=== PATIENT | female | born 1960 | race Caucasian/White ===

== ENCOUNTER 2025-05-18 21:35 | Emergency (ER) | payer MEDICAID, OTHER ==
[~2025-05-18] VITALS: Ht 157.5 cm; Wt 85.6 kg
[2025-05-18 21:40] VITALS: BP 187/94; PULSE 97; RESP 18; TEMP 98.2; O2SAT 94
--- NOTE | 2025-05-18 22:00 | ED.PDOC ---
History of Present Illness HPI Comments 64 y/o obese F presents with swelling and bruising to 3rd digit of right hand. Endorsement of noticing symptoms, today. Denial of any recent injuries. Denial of any further acute symptoms. Chief Complaint: Insect Bite Time Seen by MD: 21:50 Reviewed Notes: Nurses Notes, Medications, Allergies Allergies: Coded Allergies: Penicillins (Verified Allergy, Unknown, 05/18/25) Home Meds Active Scripts Diclofenac Sodium (Diclofenac Sodium Ec) 50 Mg Tab, 1 TAB PO BID PRN for 6 Days, #12 TAB Prov:EDIN MERCADO [facility] 05/18/25 Doxycycline Hyclate (Doxycycline Hyclate) 100 Mg Cap, 100 MG PO BID for 7 Days, #14 CAP Prov:EDIN MERCADO [facility] 05/18/25 Information Source: Patient Mode of Arrival: Ambulatory Severity: Moderate Timing: Hours Duration: Since onset Prehospital treatment: None Past Medical History PAST MEDICAL HISTORY: Denies Surgical History: Denies all surgeries WHARF HAND History: Denies all WHARF HAND Hx Family History Family History: Unknown Social History Smoker: Non-Smoker Alcohol: Denies ETOH Use Drugs: Denies Drug Use Lives In: Home All Other Systems: Reviewed and Negative (Comprehensive review of systems are negative unless stated in HPI) Physical Exam General Appearance: No Apparent Distress, Normal HEENT: Pharynx Normal Neck: Full Range of Motion, Non-Tender, Normal Respiratory: Lungs Clear, No Respiratory Distress, Normal Breath Sounds Cardiovascular: No Murmur, Normal Peripheral Pulses, Regular Rate/Rhythm Breast Exam: Deferred Gastrointestinal: Non Tender, Soft Genitalia: Deferred Pelvic: Deferred Rectal: Deferred Extremities: Normal capillary refill, Normal range of motion Musculoskeletal : Apperance: Normal Neurologic: Alert, No Motor Deficits, Normal Affect, Normal Mood, No Sensory Deficits Cerebellar Function: Normal Reflexes: NOT DONE Skin: Dry, Normal Color, Warm, Wounds (Right hand 3rd digit distal aspect under nail noted pus and ecchymosis strength sensory motion intact cap refill less than 3 seconds.) Lymphatic: No Adenopathy Was a procedure done? Was a procedure done?: Yes Sedation Sedation?: No Informed consent obtained: Yes Nail Removal Nail Removal Location: 3rd Finger nail Nail Removal preparation: Saline, Betadine, by Irrigation Nail Removal Anesthetic: Lidocaine, Without epi, Digital nerve block Informed Consent: Yes Risks/Benefits/alt. described: Yes Notes Partial nail removed medial aspect +drained patient tolerated well with minimal blood loss. Differential Dx Considerations may include: contusion, fracture, angioedema, anaphylaxis, insect envenomization, among others X-Ray, Labs, Meds, VS Vital Signs Date Time Temp Pulse Resp B/P (MAP) Pulse Ox O2 Delivery O2 Flow Rate FiO2 05/18/25 21:40 98.2 97 18 187/94 94 98.2 X-Ray, Labs, Meds, VS Comment CLINICAL INDICATION: 3RD FINGER INJURY/EDEMA TECHNIQUE: XY R HAND 3 VIEW XRAY Comparison: None FINDINGS/IMPRESSION: : There is no evidence of acute fracture or dislocation. Overlying soft tissues are intact. No radiopaque foreign body. See procedure note. Likely infected from cactus. X-ray shows no foreign body fracture or dislocation. Patient given Rocephin 1 g IM prior to discharge. Script trial of doxycycline advised to take medication as prescribed side effects discussed. Advised on rice. Advised to follow up two days urgent care PCP or back here for wound re-evaluation. ER return precautions given patient indicates understanding agrees with discharge plan of care Time of 1ST Reevaluation: 22:20 Reevaluation 1ST: Unchanged Time of 2ND Reevaluation: 23:28 Reevaluation 2ND: Improved Patient Education/Counseling: Treatment, Need For Follow Up Family Education/Counseling: No Family Present SEPSIS Sepsis Screen Date sepsis recognized/suspect: May 18, 2025 Time Sepsis recognized/suspect: 2139 Recent Procedure: No On Antibiotic Therapy: No Respiratory Rate >20: No Heart Rate >90: No Temp<36 C (96.8 F) or >38.3 C: No SBP <90 or MAP <65 mmHG: No New Acute Mental Status Change: No Is the patient on CPAP, BIPAP,: No Physician Orders R Hand 3 View Xray (05/18/25 22:06) Vital Signs Date Time Temp Pulse Resp B/P (MAP) Pulse Ox O2 Delivery O2 Flow Rate FiO2 05/18/25 21:40 98.2 97 18 187/94 94 98.2 Departure 1 Departure Time of Disposition: 23:28 Impression: Primary Impression: Infected finger Disposition: 01 HOME / SELF CARE / HOMELESS Condition: Stable e-Prescriptions Diclofenac Sodium (Diclofenac Sodium Ec) 50 Mg Tab 1 TAB PO BID PRN for 6 Days, #12 TAB Prov: EDIN MERCADO 05/18/25 Doxycycline Hyclate (Doxycycline Hyclate) 100 Mg Cap 100 MG PO BID for 7 Days, #14 CAP Prov: EDIN MERCADO [facility] 05/18/25 Discharged With: Self Critical Care Note Critical Care Time?: No Stability Stability form required: No Heart Score Heart Score: Heart Score Response (Comments) Value History N/A 0 EKG N/A 0 Age N/A 0 Risk Factors N/A 0 Troponin N/A 0 Total 0 I personally scribed for ER ([email or web address]) on 05/18/25 at 22:00. Electronically submitted by Guanaco Taylor ([email or web address]). ER May 18, 2025 22:00 MAIKEL MERCADOKathryn KNUTSON May 18, 2025 23:29
--- NOTE | 2025-05-18 22:41 | DVH ---
CLINICAL INDICATION: 3RD FINGER INJURY/EDEMA TECHNIQUE: XY R HAND 3 VIEW XRAY Comparison: None FINDINGS/IMPRESSION: : There is no evidence of acute fracture or dislocation. Overlying soft tissues are intact. No radiopaque foreign body.
[2025-05-18] MEDS ORDERED: DOXY100C4 PO (23:29)
[2025-05-18] MEDS ORDERED: DICL50TA4 PO (23:33)
[2025-05-18] MEDS: cefTRIAXone SOD 1,000 MG VL IM ONE (23:50)
== END 2025-05-18 23:55 | disposition home or self-care (01) ==
LOC: ER 21:35 → EEVIPCON 21:35 → ER 23:55
DX: S60.031A Contusion of right middle finger without damage to nail, initial encounter (principal); L08.89 Other specified local infections of the skin and subcutaneous tissue; Z88.0 Allergy status to penicillin; W57.XXXA Bitten or stung by nonvenomous insect and other nonvenomous arthropods, initial encounter; Y93.89 Activity, other specified; Y92.89 Other specified places as the place of occurrence of the external cause; Y99.8 Other external cause status
CPT/HCPCS: 11730; 73130; 96372; 99284; J0696